=== PATIENT | male | born 1995 | race Caucasian/White ===

== ENCOUNTER → 2018-11-19 10:18 | Outpatient (CLI) | payer BC ==
--- NOTE | ~2018-11-19 | ST ---
PATIENT:KATELYN ALONZO MEDICAL RECORD: [id number] SEX: M LOCATION:[facility] ORDER #: ADMISSION DATE: 11/19/18 AGE OF PATIENT: 23 REFERRING PHYSICIAN: INTERPRETING PHYSICIAN: AGUILA NIEVES MD DATE OF SERVICE: 11/19/2018 Nuclear Stress Test INDICATION: Chest pain, abnormal ECG, shortness of breath. He was exercised on a Davon protocol for 10 minutes achieving greater than 85% maxillary heart rate response with 32 mCi of sestamibi injected at peak stress, 11 mCi used previously for rest images. FINDINGS: Gated SPECT reveals preserved ejection fraction at 56% with good wall motioning and thickening and brightening throughout all segments. SPECT imaging Cardiolite was used as myocardial perfusion agent. There are definite reversible changes anteriorly and apically. This includes the basal, mid apical anterior segments as well as the apex itself as well there is decreased tracer inferiorly with an inferior perfusion defect including the basal, mid apical inferior segments. OVERALL IMPRESSION: This is markedly abnormal nuclear stress test with high risk with reversible changes anteriorly apically and inferiorly suggestive of possible multivessel coronary artery disease. We will proceed with coronary angiography as followup study. TRANSINT:[id number] Voice Confirmation ID: [id number] DOCUMENT ID: [id number] AGUILA NIEVES MD CC: [id number] DICTATION DATE: 11/20/18 1054 ROSIN BARREL FILLER: 11/20/18 2316 DEP CLI 11/19/[address] [id number]
--- NOTE | ~2018-11-19 | EC ---
PATIENT:KATELYN ALONZO DATE OF SERVICE: 11/19/18 SEX: M MEDICAL RECORD: [id number] DATE OF : [birth year] [facility] AGE OF PATIENT: 23 ADMISSION DATE: 11/19/18 REFERRING PHYSICIAN: INTERPRETING PHYSICIAN: AGUILA ROSENTHAL MD ECHOCARDIOGRAM REPORT ECHO CHARGES 4 ECHO COMPLETE Date: 11/19/18 CLINICAL DIAGNOSIS: CP/ABNORMAL EKG/SOB/ PERICARDIAL EFFUSION/ PERICARDITIS ECHOCARDIOGRAPHIC MEASUREMENTS (adult normal given) AC root (d.<3.7cm) 2.9 cm LV Septum d (<1.2 cm> 0.9 cm Valve Excursion 1.9 cm LV Septum (systole) 1.3 cm Left Atria (s.<4.0cm> 2.8 cm LVPW d(<1.2cm) 1.1 cm RV (d.<2.3cm) 3.1 cm LVPW (sytole) 1.4 cm LV diastole(<5.6CM) 6.0 cm MV E-F(>70mm/sec) cm LV systole 3.9 cm LVOT Diameter 2.0 cm MV exc.(>10mm) cm Est.ejection fraction (50-75%) % DOPPLER: LVIT cm/sec A 41.0 cm/sec E 97.0 cm/sec LA cm/sec RVSP 26.0 mmHg LVOT 124 cm/sec AOP1/2T m/s Asc. Ao 136 cm/sec RVOT 60.0 cm/sec RA cm/sec PA 108 cm/sec AV Gradient Peak 7.4 mmHg AV Mean 3.9 mmHg AV Area 2.6 cm MV Gradient Peak 6.3 mmHg MV Mean 2.1 mmHg MV Area cm COMMENTS: OP - HC Meat Cooler: Carroll [place] Trimming Cutter: 1 Dr. Rosenthal TAPE# PACS Pericardial Effusion Y DATE OF SERVICE: 11/19/2018 FINDINGS: 1. Left ventricular chamber size is mildly dilated. Left ventricular systolic function is normal. Overall ejection fraction is estimated at 55%. 2. Left atrium, right atrium, and right ventricular chamber sizes are within normal limit. 3. Valvular structures have normal structure and motion. 4. Doppler interrogation reveals moderate mitral regurgitation and mild ECHOCARDIOGRAM REPORT [id number] KATELYN ALONZO tricuspid regurgitation. No other valvular insufficiency or stenosis. Pulmonary systolic pressure is estimated at 26 mmHg. 5. Small pericardial effusion is present. This is not hemodynamically significant. TRANSINT:[id number] Voice Confirmation ID: [id number] DOCUMENT ID: [id number] AGUILA ROSENTHAL MD CC: [id number] DICTATION DATE: 11/19/181744 ELECTRIC WIRER: 11/19/182008 [facility] [address] [id number]
== END | disposition home or self-care (01) ==
LOC: D.HCCARDIO 10:00
PROVIDERS: ATTEND Internal Medicine Interventional Cardiology
DX: R07.9 Chest pain, unspecified (principal)

== ENCOUNTER → 2019-01-02 11:42 | Outpatient (CLI) | payer BC | END | disposition home or self-care (01) | LOC: D.CT 11:42 | PROVIDERS: ATTEND Nurse Practitioner | DX: R07.9 Chest pain, unspecified (principal); R06.02 Shortness of breath ==